=== PATIENT | male | born 1975 | race Caucasian/White ===

== ENCOUNTER → 2024-04-05 06:04 | Day surgery (SDC) | payer BC, SELFPAY ==
[2024-04-05] VITALS (8 sets, daily range): BP systolic 98–127; BP diastolic 62–82; BMI 29.3
[2024-04-05] MEDS: NORMOSOL-R 1000 IV (09:05)
[2024-04-05] MEDS: TYLENOL 1000 MG PO (09:10)
== END ==
LOC: SDS 06:04
PROVIDERS: ATTENDING PHYSICIAN Otolaryngology
DX: J34.2 Deviated nasal septum (principal); J34.3 Hypertrophy of nasal turbinates
CPT/HCPCS: 30520; 30140

== ENCOUNTER → 2024-09-01 14:23 | Outpatient (REF) | payer BC, SELFPAY | LOC: HWRAD 14:23 | PROVIDERS: ATTENDING PHYSICIAN Otolaryngology; FAMILY PHYSICIAN Family Medicine | DX: J32.0 Chronic maxillary sinusitis (principal) | CPT/HCPCS: 70486 ==